=== PATIENT | male | born 2000 | race Caucasian/White ===

== ENCOUNTER 2022-05-31 12:29 | Inpatient (IN) | payer BC ==
[2022-05-31] MEDS ORDERED: Albuterol/Ipratropium 3.0-0.5 MG/3 ML Neb Soln NEB ONE ×3 (13:18→15:18)
[2022-05-31] MEDS ORDERED: Sodium Chloride 0.9% 10 ML Syringe FLUSH PRN (13:40)
[2022-05-31] MEDS ORDERED: methylPREDNISolone Sodium Succinate 125 MG/2 ML SDV IVPUSH ONE (13:49)
[2022-05-31 14:20] LABS: CORONAVIRUS COVID-19 NAA NEGATIVE (NEGATIVE)
[2022-05-31] MEDS ORDERED: Acetaminophen 325 MG Tab PO PRN (15:55)
[2022-05-31] MEDS ORDERED: Temazepam 7.5 MG Cap PO PRN (15:55)
[2022-05-31] MEDS ORDERED: Albuterol 6.7 GM Inhaler INH PRN (15:55)
[2022-05-31] MEDS ORDERED: oxyCODONE 5 MG Tab PO PRN (15:55)
[2022-05-31] MEDS: Albuterol/Ipratropium 3.0-0.5 MG/3 ML Neb Soln NEB PRN ×2 (20:21→23:58)
[2022-05-31] MEDS: methylPREDNISolone Sodium Succinate 125 MG/2 ML SDV IVPUSH SCH (21:29)
[2022-06-01] MEDS: Albuterol/Ipratropium 3.0-0.5 MG/3 ML Neb Soln NEB PRN (04:07)
[2022-06-01] MEDS: methylPREDNISolone Sodium Succinate 125 MG/2 ML SDV IVPUSH SCH ×3 (06:06→22:42)
[2022-06-01 07:49] LABS: HEMOGLOBIN A1C 5.6 %
[2022-06-01] MEDS: Enoxaparin 40 MG/0.4 ML Syringe SUBCUT SCH (08:47)
[2022-06-02] MEDS: Albuterol/Ipratropium 3.0-0.5 MG/3 ML Neb Soln NEB PRN (04:43)
[2022-06-02] MEDS ORDERED: guaiFENesin/Dextromethorphan 100-10 MG/5 ML Soln 5 ML Cup PO PRN (05:21)
[2022-06-02] MEDS: methylPREDNISolone Sodium Succinate 125 MG/2 ML SDV IVPUSH SCH ×3 (05:33→21:13)
[2022-06-02] MEDS: Enoxaparin 40 MG/0.4 ML Syringe SUBCUT SCH (08:05)
[2022-06-02] MEDS ORDERED: Benzonatate 100 MG Cap PO PRN (10:25)
[2022-06-02] MEDS ORDERED: cefTRIAXone 2 GM in Sodium Chloride 0.9% 100 ML IV SCH (12:00)
[2022-06-02 12:47] LABS: BORDETELLA PARAPERT IS1001 Not Detected (Not Detected)
[2022-06-02] MEDS ORDERED: Azithromycin 500 MG in Sodium Chloride 0.9% 250 ML IV SCH (13:00)
[2022-06-02] MEDS: guaiFENesin/Dextromethorphan 100-10 MG/5 ML Soln 5 ML Cup PO SCH ×2 (14:40→21:13)
[2022-06-02] MEDS: Albuterol/Ipratropium 3.0-0.5 MG/3 ML Neb Soln NEB SCH ×2 (15:35→20:18)
[2022-06-03] MEDS: Albuterol/Ipratropium 3.0-0.5 MG/3 ML Neb Soln NEB SCH ×2 (06:17→09:58)
[2022-06-03] MEDS: methylPREDNISolone Sodium Succinate 125 MG/2 ML SDV IVPUSH SCH (06:19)
[2022-06-03] MEDS: guaiFENesin/Dextromethorphan 100-10 MG/5 ML Soln 5 ML Cup PO SCH ×2 (06:20→13:02)
[2022-06-03] MEDS: Enoxaparin 40 MG/0.4 ML Syringe SUBCUT SCH (08:33)
[2022-06-03] MEDS ORDERED: methylPREDNISolone Sodium Succinate 40 MG/1 ML SDV IVPUSH SCH (10:30)
[2022-06-03] MEDS ORDERED: Azithromycin 250 MG Tab PO SCH (13:00)
[2022-06-04] MEDS ORDERED: predniSONE 20 MG Tab PO SCH (07:00)
== END 2022-06-03 14:26 | disposition home or self-care (01) | DRG 144 ==
LOC: JD.ED 12:29 → JD.MS 15:36 → OBSVTOIN 06-02 10:34
PROVIDERS: ADMIT Internal Medicine; ATTEND Internal Medicine
DX: U07.0 Vaping-related disorder (principal); J96.01 Acute respiratory failure with hypoxia; J45.901 Unspecified asthma with (acute) exacerbation; Z20.822 Contact with and (suspected) exposure to COVID-19; J22 Unspecified acute lower respiratory infection; B97.89 Other viral agents as the cause of diseases classified elsewhere; B97.10 Unspecified enterovirus as the cause of diseases classified elsewhere
CPT/HCPCS: 0240U; 36415; 71045; 71045-26; 71250; 71250-26; 80048; 80053; 83036; 83735; 84145; 85025; 85379; 86140; 87486; 87581; 87633; 87798; 94640; 94667; 94668; 94760; 94761; 96372; 96374; 96376; 99285-25; A9270-GY; G0378; J0456; J0696; J1650; J2920; J2930; J3490; J7050; J7620-GY